=== PATIENT | female | born 1975 | race Caucasian/White ===

== ENCOUNTER 2017-01-30 11:09 | Emergency (ER) | payer MEDICARE, OTHER ==
--- NOTE | ~2017-01-30 | CR195 ---
[facility] A Service of [facility] & [facility] RADIOLOGY TEXT RESULTS PATIENT: ALEX MOYA LOCATION: [facility] : 73 UNIT #: [id number] AGE: [address]: Chu Hernandez DO SEX: F ORDER DR: [id number] [facility] [address] [place], [place] [address] [id number] E MR#: [id number] Acc #: [id number] NAME: ALEX MOYA : 1975 SEX: F STUDY DATE/TIME: 01/30/2017 11:12 UNIT: [facility] ROOM: STUDY DESCRIPTION: CR Neck Soft Tissue Attending Physician: Chu Hernandez D.O. Ordering Physician: Chu Hernandez D.O. Primary Care Physician: Primary Care Physician No MEDICAL IMAGING REPORT This report is preliminary unless electronic signature is present EXAM Neck soft tissue HISTORY Pain in the right side of throat up ear for 4-5 days. COMMENT 2 views neck soft tissue reviewed. FINDINGS Films are limited by a lot of artifact from hair or a hair weave. On the lateral view, the epiglottis is well defined. The airway is patent and the prevertebral soft tissues are within normal limits. On the frontal view, the patient's head is turned towards the left so the trachea is displaced toward the left and the subglottic area is obscured by this turn as well as the hair. If more information is needed, suggest ENT consultation. IMPRESSION The film is limited by head turned to the left on the frontal view and artifact from the patient's hair, presumably some type of a weave. Allowing for this, the airway is patent and the prevertebral soft tissues are within normal limits on plain film. The epiglottis is well defined. I cannot assess the subglottic region since it is obscured. If more information is needed consider ENT consultation. Dictated by... Elina Maldonado M.D. THIS IS AN ELECTRONICALLY VERIFIED REPORT Elina Maldonado M.D. at 01/30/2017 5:54 PM SAC/to [facility] A Service of [facility] & [facility] RADIOLOGY TEXT RESULTS PATIENT: [facility]LEX MO[id number] [birth year] UNIT #: [id number] AGE: [address]: Chu Hernandez DO SEX: F ORDER DR: TD: 01/30/2017 12:52 JOB #: [id number] MEDICAL IMAGING REPORT Page 1 of 1 COPY
--- NOTE | ~2017-01-30 | CT114 ---
[facility] A Service of [facility] & [facility] RADIOLOGY TEXT RESULTS PATIENT: ALEX MOYA LOCATION: [facility] : 73 UNIT #: [id number] AGE: [address]: Chu Hernandez DO SEX: F ORDER DR: [id number] [facility] [address] [place], [place] [address] [id number] E MR#: [id number] Acc #: [id number] NAME: ALEX MOYA : 1975 SEX: F STUDY DATE/TIME: 01/30/2017 12:37 UNIT: [facility] ROOM: STUDY DESCRIPTION: CT Soft Tissue Neck W Cont Attending Physician: Chu Hernandez D.O. Ordering Physician: Chu Hernandez D.O. Primary Care Physician: Primary Care Physician No MEDICAL IMAGING REPORT This report is preliminary unless electronic signature is present EXAM CT neck soft tissue with contrast HISTORY Right ear and throat pain for 3 days, headaches on the right side, more frequent headaches in last year. COMMENT CT of the neck soft tissue performed during the intravenous administration of 70 mL of Isovue-370. Sagittal and coronal reconstructed images obtained. There is an earlier plain film evaluation of the neck soft tissue. The parotid glands, submandibular glands, and thyroid gland are unremarkable. There are some prominent jugular chain lymph nodes level II, but they are not pathologically enlarged by imaging size criteria. There is no mucosal asymmetry. Epiglottis is well defined. The airway is patent. Prevertebral soft tissues are normal. Temporomandibular joints are located. Mastoid air cells are clear. Middle ears are clear. Mild paranasal sinus mucosal thickening. No air-fluid level in the visualized paranasal sinuses. IMPRESSION Essentially normal CT of the neck soft tissue. There are prominent lymph nodes bilateral level II jugular chains, but they are not enlarged by imaging size criteria and are probably reactive. Further evaluation to be performed depending upon clinical presentation. Dictated by... Elina Maldonado M.D. THIS IS AN ELECTRONICALLY VERIFIED REPORT Elina Maldonado M.D. at 01/31/2017 8:33 AM [facility] A Service of [facility] & [facility] RADIOLOGY TEXT RESULTS PATIENT: ALEX MOYA LOCATION: [facility] : 73 UNIT #: [id number] AGE: [address]: Chu Hernandez DO SEX: F ORDER DR: Nelson TD: 01/30/2017 13:58 JOB #: [id number] MEDICAL IMAGING REPORT Page 1 of 1 COPY
[~2017-01-30 11:09] MED LIST: ALBUTEROL17 GM INH; ALLOPURINOL300 MG PO; CARVEDILOL6.25 MG PO; CENTRUM SILVER PO; COUMADIN3 MG PO; HYDRALAZINE HCL50 MG PO; JANUVIA PO; LANTUS100 U/ML SUBQ; LASIX80 MG PO; MIRALAX17 GM PO; NAMZARIC 28 MG1 EACH PO; NEURONTIN100 MG PO; NITRO-DUR 0.1M0.1 MG EXT; SIMVASTATIN10 MG PO; SYMBICORT80 INH; ZEMPLAR1 MCG PO
[2017-01-30 11:19] LABS: INFLUENZA A NEG (NEG)
[2017-01-30 11:20] LABS: INFLUENZA B NEG (NEG)
[2017-01-30 13:15] LABS: POC - CKMB <1.0 ng/mL (0.0-7.9); POC - TROPONIN <0.05 ng/mL (<=0.05)
[2017-01-30 15:26] LABS: POC - CREATININE 0.74 mg/dL (0.44-1.03); POC - GFR >60.0 mL/min (>60)
== END 2017-01-30 14:17 | disposition home or self-care (01) ==
LOC: CED 11:09
PROVIDERS: Emergency Medicine
DX: J32.9 Chronic sinusitis, unspecified (principal); J02.9 Acute pharyngitis, unspecified; Z90.710 Acquired absence of both cervix and uterus
CPT/HCPCS: 36415; 70360; 70491; 82553; 82565; 84484; 87651; 87804; 96372; 99284; J1885; Q9967